=== PATIENT | male | born 1995 | race Two or more races ===

== ENCOUNTER 2021-11-29 11:14 | Inpatient (IN) | payer MEDICAID ==
[~2021-11-29] VITALS: Ht 172.7 cm; Wt 295.9 kg
[2021-11-29] MEDS ORDERED: HALOPERIDOL 5 MG TABLET PO PRN (12:45)
[2021-11-29] MEDS ORDERED: ZOLPIDEM TARTRATE 10 MG TABLET PO PRN (12:45)
[2021-11-29] MEDS ORDERED: LORazepam 2 MG TABLET PO PRN (12:45)
[2021-11-29 13:50] LABS: BASOPHILS % (AUTO) 0.7 % (0.0-2.0); EOSINOPHILS % (AUTO) 0.6 % (1.0-6.0); HEMATOCRIT 46.4 % (41-53); HEMOGLOBIN 15.7 g/dL (13.5-17.5); LYMPHOCYTES # (AUTO) 1.4 K/uL (1.0-4.8); LYMPHOCYTES % (AUTO) 18.6 % (22.0-44.0); MEAN CORPUSCULAR HEMOGLOBIN 29.6 pg (26.0-34.0); MEAN CORPUSCULAR VOLUME 87 fL (80-100); MONOCYTES # (AUTO) 0.8 K/uL (0.1-1.0); MONOCYTES % (AUTO) 10.5 % (2.0-9.0); NEUTROPHILS # (AUTO) 5.4 K/uL (1.8-7.7); NEUTROPHILS % (AUTO) 69.6 % (40.0-70.0); PLATELET COUNT (AUTO) 281 K/uL (150-450); RED BLOOD CELL COUNT(AUTO) 5.31 MIL/uL (4.50-5.90)
[2021-11-29 13:54] LABS: COVID AG,FIA SOURCE NASAL SWAB
[2021-11-29 13:58] LABS: ANION GAP 11 mmol/L (8-16); CALCIUM, TOTAL 8.9 mg/dL (8.8-10.5); CARBON DIOXIDE 26 mmol/L (22-29); CHLORIDE 102 mmol/L (98-107); CREATININE 1.12 mg/dL (0.60-1.30); GLOMERULAR FILTR. RATE CALC > 60 mL/min (>60); GLUCOSE,RANDOM 81 mg/dL (70-110); POTASSIUM 3.9 mmol/L (3.5-5.1); SODIUM SERUM 139 mmol/L (136-145); UREA NITROGEN, BLOOD 8 mg/dL (7-18)
[2021-11-29 14:04] LABS: ALANINE AMINOTRANSFERASE 58 U/L (12-78); ALBUMIN 4.3 g/dL (3.4-5.0); ALKALINE PHOSPHATASE 98 U/L (46-116); ASPARTATE AMINOTRANSFERASE 46 U/L (15-37); TOTAL PROTEIN, SERUM 8.3 g/dL (6.4-8.2)
[2021-11-29 14:19] LABS: APPEARANCE,URINE CLEAR (CLEAR); GLUCOSE, URINE (UA) NEGATIVE (NEGATIVE); KETONES,URINE =>150 mg/dL (NEGATIVE); LEUKOCYTE ESTERASE ,URINE NEGATIVE (NEGATIVE); NITRATE,URINE NEGATIVE (NEGATIVE); OCCULT BLOOD,URINE NEGATIVE (NEGATIVE); PH,URINE 5.5 (5.0-8.0); PROTEIN,URINE 30-70 mg/dL (NEGATIVE); SPECIFIC GRAVITIY, URINE 1.032 (1.003-1.030)
[2021-11-29 14:28] LABS: BILIRUBIN,URINE SMALL (NEGATIVE)
[2021-11-29 14:31] LABS: AMPHET/METH SCREEN,URINE NEGATIVE (NEGATIVE); BARBITURATE SCREEN, URINE NEGATIVE (NEGATIVE); BENZODIAZEPINES SCREEN,URINE POSITIVE (NEGATIVE); CANNABINOID SCREEN,URINE NEGATIVE (NEGATIVE); COCAINE SCREEN,URINE POSITIVE (NEGATIVE); METHADONE SCREEN, URINE NEGATIVE (NEGATIVE); OPIATE SCREEN,URINE NEGATIVE (NEGATIVE)
[2021-11-29 14:32] LABS: PHENCYCLIDINE SCREEN,URINE NEGATIVE (NEGATIVE)
[2021-11-29 16:30] VITALS: BP 126/67
[2021-11-30 08:00] VITALS: BP 100/65
[2021-11-30] MEDS ORDERED: ALBUTEROL SULFATE HFA 90 MCG/PUFF 8 GM INHALER IH PRN (08:15)
[2021-11-30] MEDS ORDERED: ACETAMINOPHEN 325 MG TABLET PO PRN (08:15)
[2021-11-30] MEDS ORDERED: PETROLATUM,WHITE 28 GM JELLY TP PRN (08:15)
[2021-11-30] MEDS ORDERED: MAGNESIUM HYDROXIDE SUSPENSION 30 ML UDCUP PO PRN (08:15)
[2021-11-30] MEDS ORDERED: CloNIDine HCL 0.1 MG TABLET PO PRN (08:15)
[2021-11-30] MEDS ORDERED: DOCUSATE SODIUM 100 MG CAPSULE PO PRN (08:15)
[2021-11-30] MEDS ORDERED: IBUPROFEN 600 MG TABLET PO PRN (08:15)
[2021-11-30] MEDS ORDERED: BACITRACIN 28 GM OINTMENT TP PRN (08:15)
[2021-11-30] MEDS ORDERED: LOPERAMIDE HCL 2 MG CAPSULE PO PRN (08:15)
[2021-11-30] MEDS ORDERED: BENZOCAINE/MENTHOL LOZENGE PO PRN (08:15)
[2021-11-30] MEDS ORDERED: MAG HYDROX/AL HYDROX/SIMETH ES 30 ML SUSPENSION UDCUP PO PRN (08:15)
[2021-11-30] MEDS ORDERED: OMEPRAZOLE 20 MG CAPSULE PO PRN (08:15)
[2021-11-30] MEDS ORDERED: ONDANSETRON HCL 4 MG TABLET PO PRN (08:15)
[2021-11-30 17:07] VITALS: BP 113/74
[2021-11-30] MEDS: NICOTINE 21 MG/24 HOUR PATCH TD SCH (17:58)
[2021-12-01 00:41] VITALS: BP 130/81
[2021-12-01] MEDS: NICOTINE 21 MG/24 HOUR PATCH TD SCH (08:22)
[2021-12-01 09:15] VITALS: BP 153/112
[2021-12-02 04:06] VITALS: BP 110/70
[2021-12-02 09:03] VITALS: BP 129/73
[2021-12-02] MEDS: NICOTINE 21 MG/24 HOUR PATCH TD SCH (09:12)
[2021-12-02 17:00] VITALS: BP 122/87
[2021-12-03] MEDS: NICOTINE 21 MG/24 HOUR PATCH TD SCH (08:12)
[2021-12-03] MEDS ORDERED: CITALOPRAM HYDROBROMIDE 20 MG TABLET PO SCH (09:00)
[2021-12-03 09:42] VITALS: BP 109/58
[2021-12-03] MEDS ORDERED: CITA-144 PO (12:00)
[2021-12-03 17:21] VITALS: BP 115/73
== END 2021-12-03 22:13 | disposition home or self-care (01) | DRG 750 ==
LOC: EMS 11:14 → 3EI 15:39
PROVIDERS: ADMIT Psychiatry & Neurology Psychiatry; ATTEND Psychiatry & Neurology Psychiatry
DX: F25.9 Schizoaffective disorder, unspecified (principal); F22 Delusional disorders; R45.851 Suicidal ideations; F12.90 Cannabis use, unspecified, uncomplicated; Z20.822 Contact with and (suspected) exposure to COVID-19; S00.83XA Contusion of other part of head, initial encounter; Y08.89XA Assault by other specified means, initial encounter; Y93.89 Activity, other specified; Y92.89 Other specified places as the place of occurrence of the external cause; Y99.8 Other external cause status; Z87.891 Personal history of nicotine dependence
CPT/HCPCS: 80053; 81003; 85025; 99285; G0480

== ENCOUNTER 2022-02-17 16:22 | Emergency (ER) | payer MEDICAID ==
[~2022-02-17] VITALS: Ht 170.2 cm; Wt 127.3 kg
[~2022-02-17 16:22] MED LIST: CITA-144 PO
[2022-02-17 16:30] VITALS: BP 146/84
[2022-02-17 17:27] LABS: BASOPHILS % (AUTO) 0.4 % (0.0-2.0); EOSINOPHILS % (AUTO) 0 % (1.0-6.0); HEMATOCRIT 44.8 % (41-53); HEMOGLOBIN 15.1 g/dL (13.5-17.5); LYMPHOCYTES # (AUTO) 1.7 K/uL (1.0-4.8); LYMPHOCYTES % (AUTO) 23.4 % (22.0-44.0); MEAN CORPUSCULAR HEMOGLOBIN 29.4 pg (26.0-34.0); MEAN CORPUSCULAR HGB CONC 33.6 G/dL (31.0-37.0); MEAN CORPUSCULAR VOLUME 87 fL (80-100); MONOCYTES # (AUTO) 0.6 K/uL (0.1-1.0); MONOCYTES % (AUTO) 8.7 % (2.0-9.0); NEUTROPHILS % (AUTO) 67.5 % (40.0-70.0); PLATELET COUNT (AUTO) 285 K/uL (150-450); RED BLOOD CELL COUNT(AUTO) 5.13 MIL/uL (4.50-5.90); RED CELL DISTRIBUTION WIDTH 13.3 % (11.5-14.5)
[2022-02-17 17:39] LABS: ANION GAP 12 mmol/L (8-16); CALCIUM, TOTAL 8.8 mg/dL (8.8-10.5); CARBON DIOXIDE 27 mmol/L (22-29); CHLORIDE 100 mmol/L (98-107); CREATININE 0.94 mg/dL (0.60-1.30); GLOMERULAR FILTR. RATE CALC > 60 mL/min (>60); GLUCOSE,RANDOM 90 mg/dL (70-110); POTASSIUM 3.6 mmol/L (3.5-5.1); SODIUM SERUM 139 mmol/L (136-145); UREA NITROGEN, BLOOD 8 mg/dL (7-18)
[2022-02-17 17:47] LABS: ALANINE AMINOTRANSFERASE 41 U/L (12-78); ALBUMIN 4.2 g/dL (3.4-5.0); ALKALINE PHOSPHATASE 89 U/L (46-116); ASPARTATE AMINOTRANSFERASE 23 U/L (15-37); BILIRUBIN,TOTAL 0.6 mg/dL (0.1-1.0); TOTAL PROTEIN, SERUM 7.9 g/dL (6.4-8.2)
== END 2022-02-17 18:15 | disposition left against medical advice (07) ==
LOC: EMS 16:28
DX: R07.89 Other chest pain (principal); Z53.21 Procedure and treatment not carried out due to patient leaving prior to being seen by health care provider
CPT/HCPCS: 71045; 80053; 84484; 85025; 93005; 36415-L1; 36415-TC

== ENCOUNTER 2022-05-07 00:53 | Emergency (ER) | payer MEDICAID ==
[~2022-05-07] VITALS: Ht 172.7 cm; Wt 127.3 kg
[2022-05-07 03:50] VITALS: BP 139/72
[2022-05-07 04:53] LABS: BASOPHILS % (AUTO) 0.9 % (0.0-2.0); EOSINOPHILS % (AUTO) 0.2 % (1.0-6.0); HEMATOCRIT 44.5 % (41-53); HEMOGLOBIN 14.7 g/dL (13.5-17.5); LYMPHOCYTES # (AUTO) 1.6 K/uL (1.0-4.8); LYMPHOCYTES % (AUTO) 23.2 % (22.0-44.0); MEAN CORPUSCULAR HGB CONC 33.1 G/dL (31.0-37.0); MEAN CORPUSCULAR VOLUME 88 fL (80-100); MONOCYTES # (AUTO) 0.6 K/uL (0.1-1.0); MONOCYTES % (AUTO) 8.3 % (2.0-9.0); NEUTROPHILS # (AUTO) 4.7 K/uL (1.8-7.7); NEUTROPHILS % (AUTO) 67.4 % (40.0-70.0); PLATELET COUNT (AUTO) 301 K/uL (150-450); RED BLOOD CELL COUNT(AUTO) 5.07 MIL/uL (4.50-5.90); RED CELL DISTRIBUTION WIDTH 13.3 % (11.5-14.5)
[2022-05-07 04:57] LABS: ANION GAP 9 mmol/L (8-16); CALCIUM, TOTAL 9.5 mg/dL (8.8-10.5); CARBON DIOXIDE 27 mmol/L (22-29); CHLORIDE 103 mmol/L (98-107); CREATININE 1.19 mg/dL (0.60-1.30); GLUCOSE,RANDOM 90 mg/dL (70-110); POTASSIUM 3.9 mmol/L (3.5-5.1); SODIUM SERUM 139 mmol/L (136-145); UREA NITROGEN, BLOOD 7 mg/dL (7-18)
[2022-05-07 05:02] LABS: GLOMERULAR FILTR. RATE CALC > 60 mL/min (>60)
[2022-05-07 05:04] LABS: ALANINE AMINOTRANSFERASE 39 U/L (12-78); ALKALINE PHOSPHATASE 87 U/L (46-116); ASPARTATE AMINOTRANSFERASE 18 U/L (15-37); BILIRUBIN,TOTAL 0.7 mg/dL (0.1-1.0); TOTAL PROTEIN, SERUM 7.6 g/dL (6.4-8.2)
== END 2022-05-07 06:13 | disposition home or self-care (01) ==
LOC: EMS 00:55
DX: F32.A Depression, unspecified (principal); F14.90 Cocaine use, unspecified, uncomplicated
CPT/HCPCS: 99285; 80053; 85025; 36415; G0480

== ENCOUNTER 2022-05-07 07:17 | Emergency (ER) | payer MEDICAID ==
[~2022-05-07] VITALS: Ht 180.3 cm; Wt 127.3 kg
[2022-05-07 07:21] VITALS: BP 143/86
== END 2022-05-07 07:30 | disposition left against medical advice (07) ==
LOC: EMS 07:19
DX: R45.851 Suicidal ideations (principal); Z53.21 Procedure and treatment not carried out due to patient leaving prior to being seen by health care provider

== ENCOUNTER 2022-05-07 08:14 | Inpatient (IN) | payer MEDICAID ==
[~2022-05-07] VITALS: Ht 177.8 cm; Wt 129.7 kg
[2022-05-07 08:55] LABS: COVID AG,FIA SOURCE NASOPHARYNGEAL
[2022-05-07] MEDS ORDERED: HALOPERIDOL 5 MG TABLET PO PRN (10:00)
[2022-05-07] MEDS ORDERED: DiphenhydrAMINE HCL 50 MG/ML VIAL ONE (13:45)
[2022-05-07] MEDS ORDERED: HALOPERIDOL LACTATE 5 MG/ML VIAL ONE (13:45)
[2022-05-07] MEDS ORDERED: LORazepam 2 MG/ML VIAL ONE (13:52)
[2022-05-07] MEDS ORDERED: HALOPERIDOL LACTATE 5 MG/ML VIAL IM ONE (14:15)
[2022-05-07] MEDS ORDERED: LORazepam 2 MG/ML VIAL IM ONE (14:30)
[2022-05-07] MEDS ORDERED: DiphenhydrAMINE HCL 50 MG/ML VIAL IM ONE (14:30)
[2022-05-07 15:03] VITALS: BP 110/62
[2022-05-07] MEDS ORDERED: INFLUENZA VIRUS VACCINE QVS 2022-23 (6MO+)/PF 60 MCG/0.5 ML SYRINGE IM. ONE (16:15)
[2022-05-07 20:05] VITALS: BP 114/64
[2022-05-08] MEDS: LITHIUM CARBONATE 300 MG CAPSULE PO SCH (16:22)
[2022-05-08] MEDS: DIVALPROEX SODIUM 500 MG DR TABLET PO SCH (16:22)
[2022-05-08] MEDS: LORazepam 2 MG TABLET PO PRN (17:37)
[2022-05-08 20:08] VITALS: BP 110/69
[2022-05-09] MEDS: LITHIUM CARBONATE 300 MG CAPSULE PO SCH ×2 (08:14→16:49)
[2022-05-09] MEDS: LORazepam 2 MG TABLET PO PRN ×4 (08:14→22:12)
[2022-05-09] MEDS: DIVALPROEX SODIUM 500 MG DR TABLET PO SCH ×2 (08:14→16:49)
[2022-05-09 08:23] VITALS: BP 115/71
[2022-05-09] MEDS: OLANZapine 5 MG TABLET PO SCH (20:43)
[2022-05-09 20:47] VITALS: BP 159/91
[2022-05-09] MEDS: ZOLPIDEM TARTRATE 10 MG TABLET PO PRN (23:01)
[2022-05-10] MEDS: LITHIUM CARBONATE 300 MG CAPSULE PO SCH ×2 (08:06→17:07)
[2022-05-10] MEDS: LORazepam 2 MG TABLET PO PRN ×2 (08:06→14:58)
[2022-05-10] MEDS: DIVALPROEX SODIUM 500 MG DR TABLET PO SCH ×2 (08:07→17:07)
[2022-05-10 08:20] VITALS: BP 143/89
[2022-05-10 20:04] VITALS: BP 114/64
[2022-05-10] MEDS: OLANZapine 5 MG TABLET PO SCH (20:48)
[2022-05-11 08:03] VITALS: BP 107/67
[2022-05-11] MEDS: DIVALPROEX SODIUM 500 MG DR TABLET PO SCH ×2 (08:03→16:31)
[2022-05-11] MEDS: LITHIUM CARBONATE 300 MG CAPSULE PO SCH ×2 (08:03→16:31)
[2022-05-11] MEDS: LORazepam 2 MG TABLET PO PRN ×2 (08:03→14:54)
[2022-05-11] MEDS ORDERED: NICOTINE 21 MG/24 HOUR PATCH TD ONE (17:30)
[2022-05-11] MEDS: OLANZapine 5 MG TABLET PO SCH (20:27)
[2022-05-11] MEDS: ZOLPIDEM TARTRATE 10 MG TABLET PO PRN (20:27)
[2022-05-11 21:33] VITALS: BP 122/70
[2022-05-11] MEDS ORDERED: OLAN5TAB52 PO (22:34)
[2022-05-11] MEDS ORDERED: DIVA-112 PO (22:34)
[2022-05-12 08:13] VITALS: BP 105/60
[2022-05-12] MEDS: NICOTINE 21 MG/24 HOUR PATCH TD SCH ×2 (08:22→08:27)
[2022-05-12] MEDS: LITHIUM CARBONATE 300 MG CAPSULE PO SCH ×2 (08:22→08:27)
[2022-05-12] MEDS: DIVALPROEX SODIUM 500 MG DR TABLET PO SCH ×2 (08:22→08:27)
[2022-05-12 09:49] LABS: LITHIUM 0.46 mmol/L (0.60-1.20)
== END 2022-05-12 13:11 | disposition home or self-care (01) | DRG 754 ==
LOC: EMS 08:20 → B2S 10:49 → B3A 14:51
PROVIDERS: ADMIT Psychiatry & Neurology Psychiatry; ATTEND Psychiatry & Neurology Psychiatry
DX: F32.9 Major depressive disorder, single episode, unspecified (principal); R45.851 Suicidal ideations; F41.9 Anxiety disorder, unspecified; K59.00 Constipation, unspecified; Z20.822 Contact with and (suspected) exposure to COVID-19; G47.00 Insomnia, unspecified; F15.10 Other stimulant abuse, uncomplicated; K21.9 Gastro-esophageal reflux disease without esophagitis; F17.200 Nicotine dependence, unspecified, uncomplicated; Z71.6 Tobacco abuse counseling
CPT/HCPCS: 80164; 80178; 90686; 99285; J1200; J1630; J2060